=== PATIENT | male | born 1995 ===

== ENCOUNTER 2019-02-21 19:20 | Emergency (ER) | payer OTHER ==
[2019-02-21 19:38] VITALS: PULSE 84; RESP 16; TEMP 98.8; O2SAT 100
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
== END 2019-02-21 20:44 | disposition home or self-care (01) ==
LOC: C.ER 19:20
DX: S16.1XXA Strain of muscle, fascia and tendon at neck level, initial encounter (principal); V49.59XA Passenger injured in collision with other motor vehicles in traffic accident, initial encounter; Y92.410 Unspecified street and highway as the place of occurrence of the external cause